=== PATIENT | male | born 1965 | race Caucasian/White ===

== ENCOUNTER 2020-03-13 18:18 | Day surgery (SDC) | payer OTHER ==
[~2020-03-13 18:18] MED LIST: Glycopyrrolate 0.2 MG/ML 5 ML SYRINGE ONE; Ketorolac Tromethamine 30 MG/ML VIAL ONE; Ondansetron PF 4 MG/2 ML Vial ONE; PROPOFOL 200 MG/20 ML VIAL ONE; Rocuronium Bromide 10 MG/ML (10ML VIAL) ONE; Succinylcholine 200 MG/10 ml SYRINGE FS ONE
[2020-03-13] MEDS ORDERED: EPINEPHrine 1 MG/ML AMP ONE (19:11)
[2020-03-13] MEDS ORDERED: Bupivacaine 0.25% HCL 30 ML VIAL ONE (19:11)
[2020-03-13] MEDS ORDERED: Fentanyl 100 MCG/2 ML VIAL ONE (19:31)
[2020-03-13] MEDS ORDERED: Piperacillin/Tazobactam 3.375 GM VIAL ONE (19:55)
[2020-03-13] MEDS ORDERED: Levofloxacin 500 mg/D5W 100 ml Premix Bag ONE (19:58)
--- NOTE | 2020-03-13 20:00 | HP ---
HISTORY OF PRESENT ILLNESS: Mr. Anton is a 54-year-old man, who is in transit for his honeymoon. The patient reported insidious onset periumbilical abdominal pain, which started approximately 2300 hours. He thought this was just a stomach upset that will resolve by this morning. The pain has localized to the right lower quadrant and is quite severe, rated at 8/10, associated with some nausea, but no emesis. The pain radiated to his right leg. The patient denies any fevers or chills. He denies any change in his bowel habits. He denies any unexplained weight loss. PAST MEDICAL HISTORY: Denies any medical problems. PAST SURGICAL HISTORY: Pertinent for left carpal tunnel release and repair of right wrist traumatic injury. He denies any chest or abdominal operations. SOCIAL HISTORY: He is recently . He is in fact in his honeymoon at this time. He denies any cigarette smoking or illicit drug abuse. Admits to occasional intake of ethanol in moderate amounts. FAMILY HISTORY: He denies any family history of diabetes mellitus, hypertension, heart disease, or cancer. CURRENT MEDICATIONS: None. ALLERGIES: THE PATIENT DENIES ANY KNOWN DRUG ALLERGIES. REVIEW OF SYSTEMS: Ten-point review of systems is essentially unremarkable except as stated in past medical history and chief complaint. PHYSICAL EXAMINATION: GENERAL: This reveals a 54-year-old normally developed man, who is otherwise coherent and interactive and appears stated age. The patient is alert and oriented x3. He appears to be in no acute distress at time of my evaluation. VITAL SIGNS: Today includes blood pressure 124/75, pulse 75, respiratory rate is 18, temperature 98.2 degrees Fahrenheit, oxygen saturation is 98% on room air. HEENT: Reveals normocephalic and atraumatic. Pupils are equal, round, reactive to light and accommodation. Extraocular muscles are intact bilaterally. He has no scleral icterus present. Oral mucosa is pink and moist. No lesions are noted. NECK: Supple. No palpable lymphadenopathy or thyromegaly present. HEART: Reveals regular rate and rhythm. No murmurs or gallops auscultated. LUNGS: Clear to auscultation bilaterally. Breathing, regular and nonlabored. ABDOMEN: Soft with right lower quadrant tenderness to palpation. He has a positive Rovsing sign. Liver and spleen otherwise nonpalpable below costal margins. EXTREMITIES: Reveal 2+ radial and pedal pulses bilaterally. No ankle edema is present. NEUROLOGIC: Reveals no focal deficits present. LABORATORY FINDINGS: Today includes accompanying CBC from [place] with 15,300 white blood cells, hemoglobin and hematocrit 16.0 and 48.0 respectively. Platelet count is 196,000. Metabolic profile; sodium 140, potassium 4.4, chloride is 104, bicarb is 26, BUN is 14, creatinine 0.91, glucose 124, total bilirubin 0.7, AST and ALT normal at 12 and 15 respectively. A COVID-19 test is negative. Urine toxicology screen is negative for any illicit substances. Urinalysis is essentially unremarkable. I have personally reviewed the CT scan of the abdomen and pelvis obtained in [place] prior to this transfer, which is remarkable for dilated appendix with an appendicolith and air-fluid levels within the appendix without any evidence of perforation. There is periappendiceal fat stranding. IMPRESSION: Acute appendicitis. RECOMMENDATIONS AND PLAN: Laparoscopic appendectomy. Above findings and plan has been discussed with the patient and his at bedside in the presence of his nurse. I have advised him of the risks and benefits of the proposed surgery to include, but not limited to, bleeding, infection, injury to bowel or surrounding structures. The patient indicates understanding of information provided. I have answered his questions. He has granted consent for this admission and surgical intervention. Job ID: [id number]
[2020-03-13] MEDS ORDERED: traMADol HCl 50 MG TAB ONE (21:04)
--- NOTE | 2020-03-13 23:17 | OP ---
DATE OF PROCEDURE: 03/13/2020 PREOPERATIVE DIAGNOSIS: Acute appendicitis. POSTOPERATIVE DIAGNOSIS: Acute appendicitis. PROCEDURE PERFORMED: Laparoscopic appendectomy. ANESTHESIA: General endotracheal. ESTIMATED BLOOD LOSS: 10 mL. FLUIDS GIVEN: 800 mL of crystalloids. COUNTS: Sponge and instrument counts were verified as correct x2. COMPLICATIONS: None apparent at the time of operation. INDICATION FOR OPERATION: A 54-year-old man presented with less than 24-hour history of what started as a periumbilical abdominal pain, which has since settled in the right lower quadrant. Clinical and radiographic examination were consistent with acute appendicitis, for which the patient was brought to the operating room for appendectomy. Findings are consistent with intrapelvic appendiceal position. There was no evidence of perforation. DESCRIPTION OF PROCEDURE: Informed consent was obtained from the patient, was brought to the operating room, placed in supine position. Following general anesthesia, a Olivera catheter was inserted and placed to bedside drain. The abdomen was sterilely prepped and draped in usual fashion. The skin below the umbilicus was infiltrated with 0.25% Marcaine with epinephrine. A small curvilinear infraumbilical incision was made using 11 scalpel. Umbilical stalk was grasped with Geronimo and elevated. Veress needle was inserted through the incision and placed in the peritoneal cavity, through which the abdomen was insufflated with 2.5 L of CO2 gas. Intraabdominal pressure was noted at 1 mmHg. Following abdominal insufflation, Veress needle was removed and a 5 mm trocar was introduced using a Visiport under laparoscopy. Laparoscopy confirmed proper placement of the port. No injuries to underlying structures. Additional laparoscopy reveals the right lower quadrant partially obscured by omental adhesions. Under direct laparoscopy, two 5 mm suprapubic and left lower quadrant ports were placed after the overlying skin was infiltrated with 0.25% Marcaine with epinephrine, and appropriate incision was made. The patient was placed in a Trendelenburg position, rotated to his left. I introduced Prestige grasper through the left lower quadrant port site, using this to bluntly take down omental adhesions to expose the cecum. We were able to run the distal ileum from the ileocecal junction down to proximal 2 feet, no Meckel diverticulum was noted. At that juncture, an intrapelvic appendix was identified and grasped with an Endo Laurel forceps introduced through the suprapubic port site and elevated. Mesoappendix was then sterilely divided down to the base using a LigaSure device with good hemostasis. The appendix itself was divided at the appendicocecal junction between Endoloop. The appendix was delivered of the abdominal cavity using the EndoCatch. Operative site was inspected for good hemostasis. Finding no other pathology, laparoscopy was terminated. Fascia of the left lower quadrant port was closed using 0 Vicryl suture and Endoclosure device on the laparoscopy. The abdomen was desufflated. All ports and instruments were removed and accounted for. Skin incisions were closed using 4-0 Monocryl suture in subcuticular fashion. Dermabond was applied over incisional closure. The patient tolerated the operation without any apparent complication and was returned to the recovery room in satisfactory condition. Job ID: [id number]
== END 2020-03-13 22:10 | disposition home or self-care (01) ==
LOC: SDC 18:18
PROVIDERS: ATTEND Surgery
PROC: 0DTJ4ZZ Resection of Appendix, Percutaneous Endoscopic Approach (ICD-10-PCS; principal; 2020-03-13)
DX: K35.80 Unspecified acute appendicitis (principal); Z20.822 Contact with and (suspected) exposure to COVID-19
CPT/HCPCS: 88304; J0171; J1885; J1956; J2405; J2543; J2704; J3010; S0020